=== PATIENT | male | born 1980 | race Caucasian/White ===

== ENCOUNTER 2016-11-05 14:14 | Inpatient (IN) | payer OTHER ==
[~2016-11-05] VITALS: Ht 180.3 cm; Wt 175.1 kg
[2016-11-05 14:59] LABS: BASO # 0.2 x10^3/uL (0.0-0.2); BASO % 1 % (0-3); EOS % 2 % (0-3); HEMATOCRIT 43.9 % (39.0-53.0); HEMOGLOBIN 14.7 g/dL (13.0-17.5); LYMPH % 27 % (24-48); MEAN CORPUSCULAR HEMOGLOBIN 31 pg (25-35); MEAN CORPUSCULAR HGB CONC 33 g/dL (31-37); MEAN CORPUSCULAR VOLUME 92 fL (79-100); MONO % 8 % (0-9); NEUT % 62 % (31-73); PLATELET COUNT 277 x10^3/uL (140-400); RED BLOOD COUNT 4.76 x10^6/uL (4.30-5.70); RED CELL DISTRIBUTION WIDTH 13.8 % (11.5-14.5); WHITE BLOOD COUNT 14.9 x10^3/uL (4.0-11.0)
--- NOTE | 2016-11-05 15:08 | RAD ---
Exam: AP portable chest. History: Chest pain. Comparison: None. Findings: The heart and mediastinal structures are within normal limits for size. Lungs are without infiltrate. No pneumothorax or pleural effusion is appreciated. Impression: 1. No acute cardiopulmonary process.
--- NOTE | 2016-11-05 15:10 | EKG ---
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
[2016-11-05 15:20] LABS: CALCIUM 9.2 mg/dL (8.5-10.1); POTASSIUM 4.4 mmol/L (3.5-5.1)
[2016-11-05 15:30] LABS: ALBUMIN 3.4 g/dL (3.4-5.0); DIRECT BILIRUBIN 0.1 mg/dL (0.0-0.2); MAGNESIUM 2.2 mg/dL (1.8-2.4); TOTAL BILIRUBIN 0.8 mg/dL (0.2-1.0); TOTAL PROTEIN 7.5 g/dL (6.4-8.2)
[2016-11-05 15:33] LABS: CKMB INDEX 0.8 % (0-4); CKMB MASS 0.9 ng/mL (0.0-3.6)
[2016-11-05] MEDS ORDERED: ASPIRIN CHEWABLE 81 MG TABLET. PO ONE (15:45)
[2016-11-05] MEDS ORDERED: IV NORMAL SALINE 1000ML BAG 1,000 ML IV SCH (15:45)
--- NOTE | 2016-11-05 16:37 | PHYS DOC ---
Past Medical History Past Medical History: Migraines Additional Past Medical Histor: sleep disorder, seasonal allergies Past Surgical History: Appendectomy Additional Past Surgical Histo: right shoulder surgery Additional Information: 08/02 ppd Alcohol Use: None Drug Use: None Adult General Chief Complaint Chief Complaint: CHEST PAIN HPI HPI Patient is a 36 year old male who presents with complaint of chest pain. Patient states his symptoms started approximately 1 hour prior to arrival. 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 Patient describes tight chest pain in the middle and left side of the chest with associated shortness of breath that he rated as 9 out of 10. Patient states that he tried to ambulate and felt like he was going to pass out from the pain. EMS was called at the patient's work place and the patient was brought to the emergency department for further evaluation. Patient states that currently his pain as 5 out of 10. Patient denies history of similar symptoms. Patient has history of morbid obesity and history of migraines. Patient also admits to 13 year smoking history. Patient states that there is positive family history of myocardial infarction in both grandparents. Patient has not taken any medications to help with symptoms. Patient denies any significant exacerbating factors. Review of Systems Review of Systems Constitutional: Denies fever or chills [] Eyes: Denies change in visual acuity, redness, or eye pain [] HENT: Denies nasal congestion or sore throat [] Respiratory: Shortness of breath [] Cardiovascular: Chest pain [] GI: Denies abdominal pain, nausea, vomiting, bloody stools or diarrhea [] : Denies dysuria or hematuria [] Musculoskeletal: Denies back pain or joint pain [] Integument: Denies rash or skin lesions [] Neurologic: Denies headache, focal weakness or sensory changes [] Current Medications Current Medications Current Medications Medications (Trade) Dose Ordered Sig/Chente Start Time Stop Time Status Last Admin Dose Admin Aspirin 324 mg 324 mg 1X ONCE 11/05/16 15:45 11/05/16 15:46 DC 11/05/16 15:26 324 MG Sodium Chloride (Iv Sodium Chloride 0.9% 1000ml Bag) 1,000 ml @ 1,000 mls/hr Q1H 11/05/16 15:45 11/05/16 16:44 11/05/16 15:27 1,000 MLS/HR Allergies Allergies Allergies Coded Allergies Type Severity Reaction Last Updated Verified No Known Drug Allergies 11/05/16 No Physical Exam Physical Exam Constitutional: Alert, morbidly obese, afebrile, appears in moderate discomfort. [] HENT: Normocephalic, atraumatic, bilateral external ears normal, oropharynx moist, no oral exudates, nose normal. [] Eyes: PERRLA, EOMI, conjunctiva normal, no discharge. [] Neck: Normal range of motion, no tenderness, supple, no stridor. [] Cardiovascular:Heart rate regular rhythm, no murmur [] Lungs & Thorax: Bilateral breath sounds clear to auscultation [] Abdomen: Bowel sounds normal, soft, no tenderness, no masses, no pulsatile masses. [] Skin: Warm, dry, no erythema, no rash. [] Back: No tenderness, no CVA tenderness. [] Extremities: No tenderness, no cyanosis, no clubbing, ROM intact, no edema. [] Neurologic: Alert and oriented X 3, normal motor function, normal sensory function, no focal deficits noted. [] Current Patient Data Vital Signs Vital Signs Date Time Temp Pulse Resp B/P Pulse Ox O2 Delivery O2 Flow Rate FiO2 11/05/16 15:19 76 18 119/68 99 11/05/16 14:21 98.0 Room Air 98.0 Lab Values Laboratory Tests Test 11/05/16 14:50 White Blood Count 14.9x10^3/uL (4.0-11.0) H Red Blood Count 4.76x10^6/uL (4.30-5.70) Hemoglobin 14.7g/dL (13.0-17.5) Hematocrit 43.9% (39.0-53.0) Mean Corpuscular Volume 92fL (79-100) Mean Corpuscular Hemoglobin 31pg (25-35) Mean Corpuscular Hemoglobin Concent 33g/dL (31-37) Red Cell Distribution Width 13.8% (11.5-14.5) Platelet Count 277x10^3/uL (140-400) Neutrophils (%) (Auto) 62% (31-73) Lymphocytes (%) (Auto) 27% (24-48) Monocytes (%) (Auto) 8% (0-9) Eosinophils (%) (Auto) 2% (0-3) Basophils (%) (Auto) 1% (0-3) Neutrophils # (Auto) 9.3x10^3uL (1.8-7.7) H Lymphocytes # (Auto) 4.0x10^3/uL (1.0-4.8) Monocytes # (Auto) 1.1x10^3/uL (0.0-1.1) Eosinophils # (Auto) 0.3x10^3/uL (0.0-0.7) Basophils # (Auto) 0.2x10^3/uL (0.0-0.2) Sodium Level 140mmol/L (136-145) Potassium Level 4.4mmol/L (3.5-5.1) Chloride Level 103mmol/L (98-107) Carbon Dioxide Level 32mmol/L (21-32) Anion Gap 5 (6-14) L Blood Urea Nitrogen 13mg/dL (8-26) Creatinine 1.0mg/dL (0.7-1.3) Estimated GFR (Cockcroft-Gault) 85.0 Glucose Level 106mg/dL (70-99) H Calcium Level 9.2mg/dL (8.5-10.1) Magnesium Level 2.2mg/dL (1.8-2.4) Total Bilirubin 0.8mg/dL (0.2-1.0) Direct Bilirubin 0.1mg/dL (0.0-0.2) Aspartate Amino Transferase (AST) 21U/L (15-37) Alanine Aminotransferase (ALT) 29U/L (16-63) Alkaline Phosphatase 103U/L (46-116) Creatine Kinase 119U/L (39-308) Creatine Kinase MB (Mass) 0.9ng/mL (0.0-3.6) Creatine Kinase MB Relative Index 0.8% (0-4) Troponin I Quantitative < 0.017ng/mL (0.000-0.055) JF-Lzc-N-Type Natriuretic Peptide 37pg/mL (0-124) Total Protein 7.5g/dL (6.4-8.2) Albumin 3.4g/dL (3.4-5.0) Laboratory Tests 11/05/16 14:50 Laboratory Tests 11/05/16 14:50 EKG EKG Interpreted by me: Heart rate 79, sinus rhythm, normal intervals, normal axis, no acute ST/T-wave abnormalities present [] Radiology/Procedures Radiology/Procedures [facility] [address] [place] [address] IMAGING REPORT Signed PATIENT: BELEM KEANE ACCOUNT: [id number] : 1980 LOCATION: ER AGE: 36 SEX: M EXAM STATUS: PRE ER ORD. PHYSICIAN: SHIREEN RED MD REASON: chest pain PROCEDURE: PORTABLE CHEST 1V Exam: AP portable chest. History: Chest pain. Comparison: None. Findings: The heart and mediastinal structures are within normal limits for size. Lungs are without infiltrate. No pneumothorax or pleural effusion is appreciated. Impression: 1. No acute cardiopulmonary process. DICTATED and SIGNED BY: MARCIE PINK MD DATE: 11/05/16 1505 CC: SHIREEN RED MD ~ [] Course & Med Decision Making Course & Med Decision Making Pertinent Labs and Imaging studies reviewed. (See chart for details) Patient given aspirin in the emergency department. Patient's initial cardiac enzymes were negative. Patient continues to have pain which she describes as 3 out of 10. Patient does have risk factors for possible myocardial infarction. Due to persistent pain, the patient will be admitted for rule out of myocardial infarction. I spoke with Dr. Salas who accepted care patient in hospital. A consult was placed to Dr. Costello of cardiology to follow patient in hospital. Dragon Disclaimer Dragon Disclaimer This electronic medical record was generated, in whole or in part, using a voice recognition dictation system. Departure Departure Impression: Primary Impression: Chest pain Additional Impressions: Morbid obesity Tobacco use Family history of myocardial infarction Disposition: ADMITTED INPATIENT Admitting Physician: Luzma Salas Condition: STABLE Referrals: NO PCP (PCP) Problem Qualifiers Primary Impression: Chest pain Chest pain type: unspecified Qualified Code: R07.9 - Chest pain, unspecified Additional Impressions: Morbid obesity Obesity type: unspecified obesity type Qualified Code: E66.01 - Morbid ( severe) obesity due to excess calories SHIREEN RED MD Nov 05, 2016 16:36
[2016-11-05] MEDS ORDERED: ACETAMINOPHEN 325 MG TABLET. PO PRN (16:45)
[2016-11-05] MEDS ORDERED: ONDANSETRON PF 4 MG/2 ML VIAL. IV PRN (16:45)
[2016-11-05] MEDS ORDERED: FENTANYL PF 100 MCG/2 ML VIAL. IV PRN (16:45)
[2016-11-05 16:47] LABS: BILIRUBIN,URINE NEGATIVE (NEG); GLUCOSE,URINE NEGATIVE (NEG); NITRITE,URINE NEGATIVE (NEG); PROTEIN,URINE NEGATIVE (NEG-TRACE); UROBILINOGEN,URINE 0.2 mg/dL (0.2 mg/dL)
[2016-11-05 16:54] LABS: BARBITURATES NEG (NEG); BENZODIAZEPINES NEG (NEG); CANNABINOIDS NEG (NEG); COCAINE NEG (NEG); METHADONE NEG (NEG); OPIATES NEG (NEG); PHENCYCLIDINE NEG (NEG)
[2016-11-05 16:57] LABS: BACTERIA,URINE FEW /HPF (0-FEW); RBC,URINE 0 /HPF (0-2); SQUAMOUS EPITHELIAL CELL,UR FEW /LPF; WBC,URINE 0 /HPF (0-4)
[2016-11-05 16:57] LABS: ETHANOL, URINE NEG (NEG)
[2016-11-05] MEDS ORDERED: FAMOTIDINE 20 MG TABLET. PO ONE (17:15)
[2016-11-05] MEDS ORDERED: LIDO:MAALOX:DONNATAL 1:1:1 15 ML SINGLE DOSE SWSW ONE (17:15)
--- NOTE | 2016-11-05 17:17 | PDOC1 ---
History and Physical Date of Admission Date of Admission DATE: 11/05/16 TIME: 17:10 Identification/Chief Complaint Chief Complaint chest pain Source Source: Chart review, Patient History of Present Illness History of Present Illness Mr. Gomez, is a 36 year old male admit from ER with acute chest pain. 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 1 hour of acute 8 ,. chest pain in the middle and left side of the chest, that is now improving. Pain was associated w/ shortness of breath. . Pain was severe, he had trouble ambulating Came by EMS from work. no prior symptoms or meds or med problems, + tobacco, + FH grandparents his mothers side Past Medical History Cardiovascular: No pertinent hx Pulmonary: No pertinent hx GI: No pertinent hx Musculoskeletal: Osteoarthritis (right shoulder injury) Past Surgical History Past Surgical History: No pertinent history (r shoulder) Family History Family History: No Significant Social History Smoke: 1 pack per day ALCOHOL: none Drugs: None Current Problem List Problem List Problems Medical Problems: (1) Chest pain Status: Acute (2) Morbid obesity Status: Acute (3) Tobacco use Status: Acute Problems: Current Medications Current Medications Current Medications Aspirin 324 mg 324 mg 1X ONCE PO Last administered on 11/05/16t 15:26; Start at 15:45; Stop 11/05/16 at 15:46; Status DC Sodium Chloride (Iv Sodium Chloride 0.9% 1000ml Bag) 1,000 ml @ 1,000 mls/hr Q1H IV Last administered on 11/05/16t 15:27; Start 11/05/16 at 15:45; Stop at 16:44; Status DC Ondansetron HCl (Zofran) 4 mg PRN Q8HRS PRN IV NAUSEA/VOMITING; Start 11/05/16 at 16:45; Stop 11/06/16 at 16:44 Fentanyl Citrate 50 mcg 50 mcg PRN Q2HR PRN IV PAIN; Start 11/05/16 at 16:45; Stop 11/06/16 at 16:44 Sodium Chloride (Iv Sodium Chloride 0.9% 1000ml Bag) 1,000 ml @ 100 mls/hr Q10H IV ; Start 11/05/16 at 17:00; Stop 11/06/16 at 16:59 Acetaminophen (Tylenol) 650 mg PRN Q4HRS PRN PO FEVER; Start 11/05/16 at 16:45; Stop 11/06/16 at 16:44 Multi-Ingredient Mouthwash/Gargle (Gi Cocktail Single Dose) 15 ml 1X ONCE SWSW ; Start 11/05/16 at 17:15; Stop 11/05/16 at 17:16 Famotidine (Pepcid) 20 mg 1X ONCE PO ; Start 11/05/16 at 17:15; Stop 11/05/16 at 17:16 Allergies Allergies: Coded Allergies: No Known Drug Allergies (Unverified , 11/05/16) ROS General: No: Appetite, Chills, Fatigue, Malaise, Night Sweats, Other PSYCHOLOGICAL ROS: No: Anxiety, Behavioral Disorder, Concentration difficultie , Decreased libido, Depression, Disorientation, Hallucinations, Hostility, Irritablity, Memory difficulties, Mood Swings, Obsessive thoughts, Other, Physical abuse, Sexual abuse, Sleep disturbances, Suicidal ideation Eyes: No Blurry vision, No Decreased vision, No Double vision, No Dry eyes, No Excessive tearing, No Eye Pain, No Itchy Eyes, No Loss of vision, No Other, No Photophobia, No Scotomata, No Uses contacts, No Uses glasses Respiratory: YES: SOB with excertion, Shortness of breath, No: Cough, Hemoptysis, Orthopnea, Other, Sputum Changes, Stridor, Tachypnea, Wheezing Cardiovascular: yes Chest Pain, yes Lt Headedness (maybe), No Edema, No Orthopnea, No Other, No Palpitations, No Paroxysmal Noc. Dyspnea Gastrointestinal: No Abdominal Pain, No Constipation, No Diarrhea, No Hematochezia, No Melena, No Nausea, No Other, No Vomiting Genitourinary: No , No , No , No , No , No , No , No Discharge, No Dysuria, No Flank Pain, No Frequency, No Hematuria, No Incontinence, No Other, No Pain, No Retention, No Urgency Musculoskeletal: Yes Joint Pain, Yes Joint Stiffness (right shoulder), No Gait Disturbance, No Joint Swelling, No Muscle Pain, No Muscular Weakness , No Other, No Pain In:, No Swelling In: Neurological: No Behavorial Changes, No Bowel/Bladder ControlChng, No Confusion , No Dizziness, No Gait Disturbance, No Headaches, No Impaired Coord/balance, No Memory Loss, No Numbness/Tingling, No Other, No Seizures, No Speech Problems , No Tremors, No Visual Changes, No Weakness Skin: Yes Dry Skin, No Acne, No Eczema, No Hair Changes, No Lumps, No Mole Changes, No Mottling, No Nail Changes, No Other, No Pruritus, No Rash, No Skin Lesion Changes Physical Exam General: Alert, Oriented X3, Cooperative, No acute distress HEENT: Atraumatic, PERRLA, EOMI Lungs: Clear to auscultation Heart: S1S2, no murmurs (distant) Abdomen: Normal bowel sounds, Soft (very obese, no titi to palp), No tenderness, Other Extremities: No clubbing, No cyanosis, No edema, Normal pulses Skin: No rashes, No breakdown, No significant lesion Neuro: Sensation intact Psych/Mental Status: Mental status NL, Mood NL Vitals Vitals Vital Signs Date Time Temp Pulse Resp B/P Pulse Ox O2 Delivery O2 Flow Rate FiO2 11/05/16 15:19 76 18 119/68 99 11/05/16 14:21 98.0 Room Air 98.0 Labs Labs Laboratory Tests Test 11/05/16 14:46 11/05/16 14:50 11/05/16 16:14 Urine Opiates Screen Neg (NEG) Urine Methadone Screen Neg (NEG) Urine Barbiturates Neg (NEG) Urine Phencyclidine Screen Neg (NEG) Urine Amphetamine/Methamphetamine Neg (NEG) Urine Benzodiazepines Screen Neg (NEG) Urine Cocaine Screen Neg (NEG) Urine Cannabinoids Screen Neg (NEG) Urine Ethyl Alcohol Neg (NEG) White Blood Count 14.9x10^3/uL (4.0-11.0) Red Blood Count 4.76x10^6/uL (4.30-5.70) Hemoglobin 14.7g/dL (13.0-17.5) Hematocrit 43.9% (39.0-53.0) Mean Corpuscular Volume 92fL (79-100) Mean Corpuscular Hemoglobin 31pg (25-35) Mean Corpuscular Hemoglobin Concent 33g/dL (31-37) Red Cell Distribution Width 13.8% (11.5-14.5) Platelet Count 277x10^3/uL (140-400) Neutrophils (%) (Auto) 62% (31-73) Lymphocytes (%) (Auto) 27% (24-48) Monocytes (%) (Auto) 8% (0-9) Eosinophils (%) (Auto) 2% (0-3) Basophils (%) (Auto) 1% (0-3) Neutrophils # (Auto) 9.3x10^3uL (1.8-7.7) Lymphocytes # (Auto) 4.0x10^3/uL (1.0-4.8) Monocytes # (Auto) 1.1x10^3/uL (0.0-1.1) Eosinophils # (Auto) 0.3x10^3/uL (0.0-0.7) Basophils # (Auto) 0.2x10^3/uL (0.0-0.2) Sodium Level 140mmol/L (136-145) Potassium Level 4.4mmol/L (3.5-5.1) Chloride Level 103mmol/L (98-107) Carbon Dioxide Level 32mmol/L (21-32) Anion Gap 5 (6-14) Blood Urea Nitrogen 13mg/dL (8-26) Creatinine 1.0mg/dL (0.7-1.3) Estimated GFR (Cockcroft-Gault) 85.0 Glucose Level 106mg/dL (70-99) Calcium Level 9.2mg/dL (8.5-10.1) Magnesium Level 2.2mg/dL (1.8-2.4) Total Bilirubin 0.8mg/dL (0.2-1.0) Direct Bilirubin 0.1mg/dL (0.0-0.2) Aspartate Amino Transf (AST/SGOT) 21U/L (15-37) Alanine Aminotransferase (ALT/SGPT) 29U/L (16-63) Alkaline Phosphatase 103U/L (46-116) Creatine Kinase 119U/L (39-308) Creatine Kinase MB (Mass) 0.9ng/mL (0.0-3.6) Creatine Kinase MB Relative Index 0.8% (0-4) Troponin I Quantitative < 0.017ng/mL (0.000-0.055) LR-Apc-J-Type Natriuretic Peptide 37pg/mL (0-124) Total Protein 7.5g/dL (6.4-8.2) Albumin 3.4g/dL (3.4-5.0) Urine Collection Type Unknown Urine Color Yellow Urine Clarity Clear Urine pH 7.0 Urine Specific [place] 1.015 Urine Protein Negativemg/dL (NEG-TRACE) Urine Glucose (UA) Negativemg/dL (NEG) Urine Ketones (Stick) Negativemg/dL (NEG) Urine Blood Negative (NEG) Urine Nitrite Negative (NEG) Urine Bilirubin Negative (NEG) Urine Urobilinogen Dipstick 0.2mg/dL (0.2 mg/dL) Urine Leukocyte Esterase Negative (NEG) Urine RBC 0/HPF (0-2) Urine WBC 0/HPF (0-4) Urine Squamous Epithelial Cells Few/LPF Urine Bacteria Few/HPF (0-FEW) Laboratory Tests Test 11/05/16 14:46 11/05/16 14:50 11/05/16 16:14 Urine Opiates Screen Neg (NEG) Urine Methadone Screen Neg (NEG) Urine Barbiturates Neg (NEG) Urine Phencyclidine Screen Neg (NEG) Urine Amphetamine/Methamphetamine Neg (NEG) Urine Benzodiazepines Screen Neg (NEG) Urine Cocaine Screen Neg (NEG) Urine Cannabinoids Screen Neg (NEG) Urine Ethyl Alcohol Neg (NEG) White Blood Count 14.9x10^3/uL (4.0-11.0) Red Blood Count 4.76x10^6/uL (4.30-5.70) Hemoglobin 14.7g/dL (13.0-17.5) Hematocrit 43.9% (39.0-53.0) Mean Corpuscular Volume 92fL (79-100) Mean Corpuscular Hemoglobin 31pg (25-35) Mean Corpuscular Hemoglobin Concent 33g/dL (31-37) Red Cell Distribution Width 13.8% (11.5-14.5) Platelet Count 277x10^3/uL (140-400) Neutrophils (%) (Auto) 62% (31-73) Lymphocytes (%) (Auto) 27% (24-48) Monocytes (%) (Auto) 8% (0-9) Eosinophils (%) (Auto) 2% (0-3) Basophils (%) (Auto) 1% (0-3) Neutrophils # (Auto) 9.3x10^3uL (1.8-7.7) Lymphocytes # (Auto) 4.0x10^3/uL (1.0-4.8) Monocytes # (Auto) 1.1x10^3/uL (0.0-1.1) Eosinophils # (Auto) 0.3x10^3/uL (0.0-0.7) Basophils # (Auto) 0.2x10^3/uL (0.0-0.2) Sodium Level 140mmol/L (136-145) Potassium Level 4.4mmol/L (3.5-5.1) Chloride Level 103mmol/L (98-107) Carbon Dioxide Level 32mmol/L (21-32) Anion Gap 5 (6-14) Blood Urea Nitrogen 13mg/dL (8-26) Creatinine 1.0mg/dL (0.7-1.3) Estimated GFR (Cockcroft-Gault) 85.0 Glucose Level 106mg/dL (70-99) Calcium Level 9.2mg/dL (8.5-10.1) Magnesium Level 2.2mg/dL (1.8-2.4) Total Bilirubin 0.8mg/dL (0.2-1.0) Direct Bilirubin 0.1mg/dL (0.0-0.2) Aspartate Amino Transf (AST/SGOT) 21U/L (15-37) Alanine Aminotransferase (ALT/SGPT) 29U/L (16-63) Alkaline Phosphatase 103U/L (46-116) Creatine Kinase 119U/L (39-308) Creatine Kinase MB (Mass) 0.9ng/mL (0.0-3.6) Creatine Kinase MB Relative Index 0.8% (0-4) Troponin I Quantitative < 0.017ng/mL (0.000-0.055) DI-Hfd-L-Type Natriuretic Peptide 37pg/mL (0-124) Total Protein 7.5g/dL (6.4-8.2) Albumin 3.4g/dL (3.4-5.0) Urine Collection Type Unknown Urine Color Yellow Urine Clarity Clear Urine pH 7.0 Urine Specific [place] 1.015 Urine Protein Negativemg/dL (NEG-TRACE) Urine Glucose (UA) Negativemg/dL (NEG) Urine Ketones (Stick) Negativemg/dL (NEG) Urine Blood Negative (NEG) Urine Nitrite Negative (NEG) Urine Bilirubin Negative (NEG) Urine Urobilinogen Dipstick 0.2mg/dL (0.2 mg/dL) Urine Leukocyte Esterase Negative (NEG) Urine RBC 0/HPF (0-2) Urine WBC 0/HPF (0-4) Urine Squamous Epithelial Cells Few/LPF Urine Bacteria Few/HPF (0-FEW) VTE Prophylaxis Ordered VTE Prophylaxis Devices: No VTE Pharmacological Prophylaxi: Yes Assessment/Plan Assessment/Plan angina r/o ACS morbid obesity, BMI > 40 Leukocytosis, NOS, no SIRS tobaccoism, consider cessation QUIQUE SALVADOR MD Nov 05, 2016 17:17
[2016-11-05] MEDS: IV NORMAL SALINE 1000ML BAG 1,000 ML IV SCH (17:58)
[2016-11-05] MEDS ORDERED: ENOXAPARIN 40 MG/0.4 ML SYRINGE. SQ SCH (18:00)
[2016-11-05 19:00] VITALS: BP 125/76
[2016-11-05] MEDS ORDERED: AMIT50TA PO (22:35)
[2016-11-05] MEDS ORDERED: CETI1TAB7 PO (22:35)
[2016-11-05] MEDS ORDERED: PROP120C3 PO (22:35)
[2016-11-05] MEDS ORDERED: MULT-208 PO (22:36)
[2016-11-05 22:41] VITALS: BP 132/75
[2016-11-05] MEDS ORDERED: PROP60CA PO (22:56)
[2016-11-05] MEDS ORDERED: CETI10TA22 PO (22:57)
[2016-11-05] MEDS: MULTIVITAMIN with MINERAL TABLET. PO SCH (23:30)
[2016-11-05] MEDS: CETIRIZINE HCL 10 MG TABLET. PO SCH (23:31)
[2016-11-05] MEDS: AMITRIPTYLINE HCL 50 MG TABLET PO SCH (23:31)
[2016-11-05] MEDS: PROPRANOLOL ER 60 MG CAP.SA.24H. PO SCH (23:38)
[2016-11-06] VITALS (7 sets, daily range): BP systolic 117–135; BP diastolic 68–82
[2016-11-06] MEDS: IV NORMAL SALINE 1000ML BAG 1,000 ML IV SCH ×2 (04:11→12:26)
[2016-11-06 05:29] LABS: BASO # 0.1 x10^3/uL (0.0-0.2); BASO % 1 % (0-3); EOS % 2 % (0-3); HEMATOCRIT 42.6 % (39.0-53.0); LYMPH # 4.1 x10^3/uL (1.0-4.8); LYMPH % 32 % (24-48); MEAN CORPUSCULAR HEMOGLOBIN 31 pg (25-35); MEAN CORPUSCULAR HGB CONC 33 g/dL (31-37); MEAN CORPUSCULAR VOLUME 94 fL (79-100); MONO % 6 % (0-9); NEUT % 59 % (31-73); PLATELET COUNT 251 x10^3/uL (140-400); RED BLOOD COUNT 4.55 x10^6/uL (4.30-5.70); RED CELL DISTRIBUTION WIDTH 14.2 % (11.5-14.5); WHITE BLOOD COUNT 12.6 x10^3/uL (4.0-11.0)
[2016-11-06 06:05] LABS: CALCIUM 9.1 mg/dL (8.5-10.1); CREATININE 0.9 mg/dL (0.7-1.3); POTASSIUM 3.7 mmol/L (3.5-5.1)
[2016-11-06 06:19] LABS: CHOLESTEROL/HDL RATIO 5.3
--- NOTE | 2016-11-06 08:42 | ACF ---
Admit Criteria Forms Admit Criteria Forms Admit Criteria Forms CARDIOLOGY GRG Clinical Indications for Admission to Inpatient Care ( Place 'X' for any and all applicable criteria): Hospital admission is needed for appropriate care of the patient because of ANY ONE of the following (1): [ ] I. Hemodynamic instability as indicated by ALL of the following (1)(2)(3) (4)(5) [ ]a) Vital signs or other findings not as expected for chronic patient condition or baseline [ ]b) Instability indicated by ANY ONE of the following: [ ]i) Hypotension [ ]ii) Symptomatic Tachycardia unresponsive to treatment ( e.g., analgesia, fluids, sedation as indicated) [ ]iii) Inadequate perfusion indicated by ANY ONE of the following: [ ] 1) Lactic acidosis (> 2 mmol/L) [ ] 2) New abnormal capillary refill (> 3 seconds) [ ] 3) Reduced urine output [ ] 4) New altered mental status [ ]iv) Orthostatic vital sign changes unresponsive to treatment (e.g., fluids) [ ]v) IV inotropic or vasopressor medication required to maintain adequate blood pressure or perfusion [ ] II. Severe heart failure as indicated by ANY ONE of the following(17)(18) [ ]a) Respiratory distress [ ]b) Hypotension [ ]c) Anasarca (refractory to outpatient therapy) [ ]d) Cardiac arrhythmias of immediate concern [ ]e) Myocardial ischemia [ ] III. Cardiac arrhythmias or findings of immediate concern indicated by ANY ONE of the following (19)(20): [ ] a) Heart rhythms that are inherently dangerous or unstable indicated by ANY ONE of the following (21)(22)(23): [ ] i) Resuscitated ventricular fibrillation or cardiac arrest [ ] ii) Ventricular escape rhythm [ ] iii) Sustained ventricular tachycardia (30 seconds or more of ventricular rhythm at greater than 100 beats per minute) [ ] iv) Nonsustained ventricular tachycardia and ANY ONE of the following: [ ] 1) Suspected cardiac ischemia as cause or consequence of ventricular tachycardia [ ] 2) In setting of acute myocarditis [ ] b) Unstable cardiac conduction defects indicated by ANY ONE of the following(23)(24)(25) [ ] i) Type II second-degree atrioventricular block [ ]ii) Third-degree atrioventricular block [ ]iii) New-onset left bundle branch block with suspected myocardial ischemia [ ]c) Any heart rhythm and ANY ONE of the following (21)(22)(26)(27) (28) [ ] i) Continuous long-term ECG monitoring needed (e.g., initiation of drug requiring monitoring for more than 24 hours) [ ] ii) Patient has automatic implanted cardioverter defibrillator that is repeatedly firing, malfunctioning, or in need of immediate adjustment of settings beyond the scope of ambulatory or observation care [ ]d) Heart rhythms of concern due to ANY ONE of the following: [ ] i) Hypotension [ ] ii) Respiratory distress [ ] iii) Association with other significant symptoms (e.g., bradycardia with syncope or ongoing dizziness, supraventricular tachycardia with chest pain (14)(15)(17) [ ] IV. Monitoring for cardiac contusion beyond the scope of observation care needed [A](30)(31)(32) [ ] V. Surgical or device complication (e.g., valve replacement complication , pacemaker dysfunction) (35)(41)(44)(45)(46) [ ] . Inpatient palliative care needed. [B](49) Also use Inpatient Palliative Care Criteria [ ] VII. Nonbacterial thrombotic (marantic) endocarditis (36)(43)(47)(48) [X] VIII. Cardiology condition, symptom, or finding for which emergency and observation care has failed or are not considered appropriate. [ ] IX. Acute valvular disease requiring inpatient as indicated by ANY ONE of the following (41) [ ]a) Acute valvular regurgitation (42) [ ]b) Noninfectious valvulitis (43) [ ]c) Obstructive valve thrombosis [ ]d) Paravalvular leak [ ]e) Other significant valvular disorder remaining after emergency or observation level of care (as appropriate) [ ]X. Pericardial disease requiring inpatient treatment as indicated by ANY ONE of the following (33)(34)(35)(36)(37) [ ]a) Suspected tamponade (38)(39)(40) [ ]b) Hemopericardium [ ]c) Other significant pericardial disorder remaining after emergency or observation level of care (as appropriate) [ ] XI. Cardiac ischemia beyond scope of emergency and observation care. [ ] XII. Hypertension requiring inpatient treatment as indicated by ANY ONE of the following (6)(7)(8) [ ]a) SBP greater than 220 mm Hg or DBP greater than 120 mmHg despite treatment [ ]b) SBP greater than 140 mm Hg or DBP greater than 100 mm Hg with evidence of acute end organ damage as indicated by ANY ONE of the following [ ] i) Encephalopathy [ ] ii) Acute renal failure as indicated by new onset of ANY ONE of the following (9)(10)(11)(12)(13) [ ]1) 3-fold rise in serum creatinine from baseline [ ]2) Serum creatinine greater than 4 mg/dL ( 354 micromoles/L) with acute rise greater than 0.5 mg/dL (44.2 micromoles/L) [ ]3) Reduction of more than 75% in estimated glomerular filtration rate from baseline [ ]4) Estimated glomerular filtration rate less than 35 mL/min/1.73m2 (0.59 mL/sec/1.73m2) in child up to 18 years of age [ ]5) Cessation of urine output indicated by ALL of the following [ ]A. Adequate volume status [ ]B. Inadequate urine output as indicated by ANY ONE of the following [ ]a. Urine output less than 0.3 mL/kg/hr for 24 hours [ ]b. Anuria (urine output less than 0.1 mL/kg/hr) for 12 hours [ ] iii) Aortic dissection [ ] iv) Myocardial Ischemia [ ] v) Left ventricular heart failure [ ]vi) Retinal Hemorrhage [ ]vii) Other significant finding [ ]c) Hypertension in child requiring inpatient treatment as indicated by ALL of the following(14)(15)(16) [ ] i) Outpatient treatment not effective, not available, or not appropriate [ ]ii) SBP or DBP greater than 95th percentile for age [ ]iii) Evidence of acute end organ damage as indicated by ANY ONE of the following [ ]1) Altered mental status [ ]2) Acute renal failure as indicated by new onset of ANY ONE of the following(9)(10)(11)(12)(13) [ ]A. 3-fold rise in serum creatinine from baseline [ ]B. Serum creatinine greater than 4 mg/dL (354 micromoles/L) with acute rise greater than 0.5 mg/dL (44.2 micromoles/L) [ ]C. Reduction of more than 75% in estimated glomerular filtration rate from baseline [ ]D. Estimated glomerular filtration rate less than 35 mL/min/1.73m2 (0.59 mL/sec/1.73m2) in child up to 18 years of age [ ]E. Cessation of urine output indicated by ALL of the following [ ]a. Adequate volume status [ ]b. Inadequate urine output as indicated by ANY ONE of the following [ ]i) Urine output less than 0.3 mL/kg/hr for 24 hours [ ]ii) Anuria ( urine output less than 0.1 mL/kg/hr) for 12 hours [ ]3) Severe headache [ ]4) Visual disturbance [ ]5) Retinal hemorrhage [ ]6) Other significant finding [ ]XIII. Complications of transplanted heart indicated by ANY ONE of the following(61): [ ]a) Acute graft rejection requiring inpatient management (eg, intravenous immunosuppression)(62)(63) [ ]b) Acute graft heart failure indicated by ANY ONE of the following(64): [ ]i) Hemodynamic instability [ ]ii) Cardiac arrhythmias of immediate concern [ ]iii) Pulmonary edema that is very severe (eg, mechanical ventilation needed, imminent or likely, need for 100% oxygen to keep oxygen saturation above 90%) [ ]iv) Pulmonary edema that is persistent as indicated by ALL of the following: [ ]1) New need for oxygen therapy to keep oxygen saturation above 90% (or increased FiO2 need from baseline) [ ]2) Has not improved sufficiently with emergency department or observation care IV diuretics or other heart failure treatments[E] [ ]v) Altered mental status that is severe or persistent [ ]vi) Increased creatinine (new on laboratory test) with reduction of more than 50% in estimated glomerular filtration rate from baseline [ ]vii) Progressively (ongoing) rising creatinine (known from past laboratory test) with reduction of more than 25% in estimated glomerular filtration rate from baseline [ ]viii) Acute renal failure [ ]ix) Acute peripheral ischemia (eg, examination shows pulseless, cool, mottled, or cyanotic extremity) [ ]x) Pulmonary artery catheter monitoring needed [ ]xi) Other sign or symptom of heart failure requiring inpatient treatment (ie, too severe or not responsive to outpatient and observation care treatment) [ ]c) Infection requiring inpatient management (eg, Hemodynamic instability, need for intravenous antimicrobial treatment)(66)(67)(68)(69)(70) [ ]d) Cardiac allograft vasculopathy requiring inpatient management ( eg evidence of cardiac ischemia)(71) [ ]e) Other complication of transplanted heart (eg, stroke, severe pulmonary hypertension, severe valvular dysfunction) requiring inpatient management(72) The original [facility] content created by [facility] [employer] has been revised. The portions of the content which have been revised are identified through the use of italic text or in bold, and [facility] [employer] has neither reviewed nor approved the modified material. All other unmodified content is copyright [facility] [employer]. Please see references footnoted in the original [facility] [email or web address] edition 2016 LYNN MEJIA Nov 06, 2016 08:42
[2016-11-06] MEDS: PROPRANOLOL ER 60 MG CAP.SA.24H. PO SCH (09:00)
[2016-11-06] MEDS ORDERED: PROPRANOLOL ER 60 MG CAP.SA.24H. PO SCH ×2 (09:00→21:00)
[2016-11-06] MEDS: ASPIRIN ENTERIC COATED 325 MG TABLET.DR. PO SCH (09:04)
--- NOTE | 2016-11-06 13:22 | PDOC2 ---
HERIBERTO OCASIO [employer] WORKER 11/06/16 1322: CARDIAC CONSULT DATE OF CONSULT Date of Consult DATE: 11/06/16 TIME: 13:20 REASON FOR CONSULT Reason for Consult: chest pain HISTORY OF PRESENT ILLNESS HISTORY OF PRESENT ILLNESS Mr Gomez is a 36 year old male who presents with complaints of chest pain. 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 He reports some associated nausea but denies dyspnea or diaphoresis. He says the pain gradually increased over about 30 min and when he got back to his work he was met by EMS. He reports that his pain seemed to ease a bit with laying to his side in the truck and was also eased a bit by GI cocktail given in the ED. He reports pain otherwise lasted over 2 hours and then seemed to resolve on its own. HE denies any prior symptoms of chest discomfort, dyspnea or palpitations. He denies congestive symptoms, lightheadedness or syncope. He says he had been having issues with allergies and post nasal drip for a couple days prior. He denies cough, fever or chills. PAST MEDICAL HISTORY Past Medical History BRENDA on cpap PAST SURGICAL HISTORY Past Surgical History shoulder surgery, tonsillectomy, appendectomy and ear surgery FAMILY HISTORY Family History no premature coronary disease, mother has history of valvular disease secondary to phen phen use. SOCIAL HISTORY Social History smokes 1ppd, no significant ETOH, no illicit drugs CURRENT MEDICATIONS CURRENT MEDICATIONS Current Medications Medications (Trade) Dose Ordered Sig/Chente Route PRN Reason Start Time Stop Time Status Last Admin Dose Admin Aspirin 324 mg 324 mg 1X ONCE PO 11/05/16 15:45 11/05/16 15:46 DC 11/05/16 15:26 Sodium Chloride 1,000 ml @ 1,000 mls/hr Q1H IV 11/05/16 15:45 11/05/16 16:44 DC 11/05/16 15:27 Sodium Chloride (Iv Sodium Chloride 0.9% 1000ml Bag) 1,000 ml @ 100 mls/hr Q10H IV 11/05/16 17:00 11/06/16 16:59 11/06/16 04:11 Multi-Ingredient Mouthwash/Gargle (Gi Cocktail Single Dose) 15 ml 1X ONCE SWSW 11/05/16 17:15 11/05/16 17:16 DC 11/05/16 17:29 Famotidine (Pepcid) 20 mg 1X ONCE PO 11/05/16 17:15 11/05/16 17:16 DC 11/05/16 17:29 Aspirin (Ecotrin) 325 mg DAILYWBKFT PO 11/06/16 08:00 11/06/16 09:04 Enoxaparin Sodium (Lovenox 40mg Syringe) 40 mg Q24H SQ 11/05/16 18:00 11/05/16 17:59 Amitriptyline HCl (Amitriptyline HCl) 50 mg QHS PO 11/05/16 23:15 11/05/16 23:31 Cetirizine HCl (Zyrtec) 10 mg HS PO 11/05/16 23:15 11/05/16 23:31 Propranolol HCl (Inderal La) 120 mg DAILY PO 11/05/16 23:15 11/06/16 11:18 DC 11/05/16 23:38 Multivitamins (Thera M Plus) 1 tab HS PO 11/05/16 23:15 11/05/16 23:30 ALLERGIES ALLERGIES: Coded Allergies: No Known Drug Allergies (Unverified , 11/05/16) ROS Review of System as per HPI PHYSICAL EXAM General: Alert, Oriented X3, Cooperative, No acute distress, Other (morbidly obese) HEENT: Atraumatic, EOMI Lungs: Clear to auscultation Heart: Normal S1, Normal S2, Other (no obvious murmurs, no gallops, clicks or rubs) Abdomen: Normal bowel sounds, Soft Extremities: No cyanosis, No edema, Normal pulses Neuro: Normal speech, Strength at 5/5 X4 ext Psych/Mental Status: Mental status NL, Mood NL VITALS VITALS Vital Signs Date Time Temp Pulse Resp B/P Pulse Ox O2 Delivery O2 Flow Rate FiO2 11/06/16 11:05 97.6 70 20 135/82 93 Room Air 97.6 LABS Lab: Laboratory Tests Test 11/05/16 14:46 11/05/16 14:50 11/05/16 16:14 11/05/16 20:05 Urine Opiates Screen Neg (NEG) Urine Methadone Screen Neg (NEG) Urine Barbiturates Neg (NEG) Urine Phencyclidine Screen Neg (NEG) Urine Amphetamine/Methamphetamine Neg (NEG) Urine Benzodiazepines Screen Neg (NEG) Urine Cocaine Screen Neg (NEG) Urine Cannabinoids Screen Neg (NEG) Urine Ethyl Alcohol Neg (NEG) White Blood Count 14.9x10^3/uL (4.0-11.0) Red Blood Count 4.76x10^6/uL (4.30-5.70) Hemoglobin 14.7g/dL (13.0-17.5) Hematocrit 43.9% (39.0-53.0) Mean Corpuscular Volume 92fL (79-100) Mean Corpuscular Hemoglobin 31pg (25-35) Mean Corpuscular Hemoglobin Concent 33g/dL (31-37) Red Cell Distribution Width 13.8% (11.5-14.5) Platelet Count 277x10^3/uL (140-400) Neutrophils (%) (Auto) 62% (31-73) Lymphocytes (%) (Auto) 27% (24-48) Monocytes (%) (Auto) 8% (0-9) Eosinophils (%) (Auto) 2% (0-3) Basophils (%) (Auto) 1% (0-3) Neutrophils # (Auto) 9.3x10^3uL (1.8-7.7) Lymphocytes # (Auto) 4.0x10^3/uL (1.0-4.8) Monocytes # (Auto) 1.1x10^3/uL (0.0-1.1) Eosinophils # (Auto) 0.3x10^3/uL (0.0-0.7) Basophils # (Auto) 0.2x10^3/uL (0.0-0.2) Sodium Level 140mmol/L (136-145) Potassium Level 4.4mmol/L (3.5-5.1) Chloride Level 103mmol/L (98-107) Carbon Dioxide Level 32mmol/L (21-32) Anion Gap 5 (6-14) Blood Urea Nitrogen 13mg/dL (8-26) Creatinine 1.0mg/dL (0.7-1.3) Estimated GFR (Cockcroft-Gault) 85.0 Glucose Level 106mg/dL (70-99) Calcium Level 9.2mg/dL (8.5-10.1) Magnesium Level 2.2mg/dL (1.8-2.4) Total Bilirubin 0.8mg/dL (0.2-1.0) Direct Bilirubin 0.1mg/dL (0.0-0.2) Aspartate Amino Transf (AST/SGOT) 21U/L (15-37) Alanine Aminotransferase (ALT/SGPT) 29U/L (16-63) Alkaline Phosphatase 103U/L (46-116) Creatine Kinase 119U/L (39-308) Creatine Kinase MB (Mass) 0.9ng/mL (0.0-3.6) Creatine Kinase MB Relative Index 0.8% (0-4) Troponin I Quantitative < 0.017ng/mL (0.000-0.055) < 0.017ng/mL (0.000-0.055) UV-Xke-G-Type Natriuretic Peptide 37pg/mL (0-124) Total Protein 7.5g/dL (6.4-8.2) Albumin 3.4g/dL (3.4-5.0) Urine Collection Type Unknown Urine Color Yellow Urine Clarity Clear Urine pH 7.0 Urine Specific [place] 1.015 Urine Protein Negativemg/dL (NEG-TRACE) Urine Glucose (UA) Negativemg/dL (NEG) Urine Ketones (Stick) Negativemg/dL (NEG) Urine Blood Negative (NEG) Urine Nitrite Negative (NEG) Urine Bilirubin Negative (NEG) Urine Urobilinogen Dipstick 0.2mg/dL (0.2 mg/dL) Urine Leukocyte Esterase Negative (NEG) Urine RBC 0/HPF (0-2) Urine WBC 0/HPF (0-4) Urine Squamous Epithelial Cells Few/LPF Urine Bacteria Few/HPF (0-FEW) Test 11/06/16 04:44 White Blood Count 12.6x10^3/uL (4.0-11.0) Red Blood Count 4.55x10^6/uL (4.30-5.70) Hemoglobin 14.0g/dL (13.0-17.5) Hematocrit 42.6% (39.0-53.0) Mean Corpuscular Volume 94fL (79-100) Mean Corpuscular Hemoglobin 31pg (25-35) Mean Corpuscular Hemoglobin Concent 33g/dL (31-37) Red Cell Distribution Width 14.2% (11.5-14.5) Platelet Count 251x10^3/uL (140-400) Neutrophils (%) (Auto) 59% (31-73) Lymphocytes (%) (Auto) 32% (24-48) Monocytes (%) (Auto) 6% (0-9) Eosinophils (%) (Auto) 2% (0-3) Basophils (%) (Auto) 1% (0-3) Neutrophils # (Auto) 7.4x10^3uL (1.8-7.7) Lymphocytes # (Auto) 4.1x10^3/uL (1.0-4.8) Monocytes # (Auto) 0.8x10^3/uL (0.0-1.1) Eosinophils # (Auto) 0.2x10^3/uL (0.0-0.7) Basophils # (Auto) 0.1x10^3/uL (0.0-0.2) Sodium Level 140mmol/L (136-145) Potassium Level 3.7mmol/L (3.5-5.1) Chloride Level 103mmol/L (98-107) Carbon Dioxide Level 26mmol/L (21-32) Anion Gap 11 (6-14) Blood Urea Nitrogen 12mg/dL (8-26) Creatinine 0.9mg/dL (0.7-1.3) Estimated GFR (Cockcroft-Gault) 96.0 Glucose Level 67mg/dL (70-99) Calcium Level 9.1mg/dL (8.5-10.1) Troponin I Quantitative < 0.017ng/mL (0.000-0.055) Triglycerides Level 181mg/dL (0-150) Cholesterol Level 191mg/dL (0-200) LDL Cholesterol, Calculated 119mg/dL (0-100) VLDL Cholesterol, Calculated 36mg/dL (0-40) HDL Cholesterol 36mg/dL (40-60) Cholesterol/HDL Ratio 5.3 IMAGES IMAGES CXR - Impression: 1. No acute cardiopulmonary process. EKG EKG sinus rhythm, early transition, no acute ischemic changes ASSESSMENT/PLAN ASSESSMENT/PLAN 1. Chest pain, atypical, CT ruled out, no acute EKG changes. Suggest ambulate. Echo as outpatient if discharged home. 2. morbid obesity - weight reduction encouraged 3. BRENDA - cpap as prescribed. Problems: PASNOORI,BILLY R MD 11/06/16 1425: CARDIAC CONSULT ALLERGIES ALLERGIES: Coded Allergies: No Known Drug Allergies (Unverified , 11/05/16) ASSESSMENT/PLAN ASSESSMENT/PLAN Patient seen and examined. Agree with POLE FRAMER's assessment and plan. Chest pain with atypical features and most probably GI in etiology. Myocardial infarction ruled out. Plan for 2-D echocardiogram to rule out any wall motion abnormalities as an outpatient. Thank you for your consultation. Problems: HERIBERTO OCASIO [employer] WORKER Nov 06, 2016 13:22 BILLY MAURICE MD Nov 06, 2016 14:25
--- NOTE | 2016-11-06 14:35 | PDOC ---
PROGRESS NOTES Chief Complaint Chief Complaint chest pain, 2/2 muscular skeletal pain likely morbid obesity, BMI > 40 Leukocytosis, NOS, no SIRS tobaccoism, consider cessation plan: fu with card, would like to do echo CE neg pt refused to leave today, would like to get echo done before leaving hope do echo tmr and dc pt cont home meds History of Present Illness History of Present Illness chest pain gone, mild chest wall tenderness Vitals Vitals Vital Signs Date Time Temp Pulse Resp B/P Pulse Ox O2 Delivery O2 Flow Rate FiO2 11/06/16 11:05 97.6 70 20 135/82 93 Room Air 97.6 Physical Exam General: Alert, Oriented X3, Cooperative, No acute distress, Other (morbidly obese) Heart: Normal S1, Normal S2, Other (no obvious murmurs, no gallops, clicks or rubs) Lungs: Clear Abdomen: Normal bowel sounds, Soft Extremities: No cyanosis, No edema, Normal pulses Skin: No rashes, No breakdown, No significant lesion Labs LABS Laboratory Tests Test 11/05/16 14:46 11/05/16 14:50 11/05/16 16:14 11/05/16 20:05 Urine Opiates Screen Neg (NEG) Urine Methadone Screen Neg (NEG) Urine Barbiturates Neg (NEG) Urine Phencyclidine Screen Neg (NEG) Urine Amphetamine/Methamphetamine Neg (NEG) Urine Benzodiazepines Screen Neg (NEG) Urine Cocaine Screen Neg (NEG) Urine Cannabinoids Screen Neg (NEG) Urine Ethyl Alcohol Neg (NEG) White Blood Count 14.9x10^3/uL (4.0-11.0) Red Blood Count 4.76x10^6/uL (4.30-5.70) Hemoglobin 14.7g/dL (13.0-17.5) Hematocrit 43.9% (39.0-53.0) Mean Corpuscular Volume 92fL (79-100) Mean Corpuscular Hemoglobin 31pg (25-35) Mean Corpuscular Hemoglobin Concent 33g/dL (31-37) Red Cell Distribution Width 13.8% (11.5-14.5) Platelet Count 277x10^3/uL (140-400) Neutrophils (%) (Auto) 62% (31-73) Lymphocytes (%) (Auto) 27% (24-48) Monocytes (%) (Auto) 8% (0-9) Eosinophils (%) (Auto) 2% (0-3) Basophils (%) (Auto) 1% (0-3) Neutrophils # (Auto) 9.3x10^3uL (1.8-7.7) Lymphocytes # (Auto) 4.0x10^3/uL (1.0-4.8) Monocytes # (Auto) 1.1x10^3/uL (0.0-1.1) Eosinophils # (Auto) 0.3x10^3/uL (0.0-0.7) Basophils # (Auto) 0.2x10^3/uL (0.0-0.2) Sodium Level 140mmol/L (136-145) Potassium Level 4.4mmol/L (3.5-5.1) Chloride Level 103mmol/L (98-107) Carbon Dioxide Level 32mmol/L (21-32) Anion Gap 5 (6-14) Blood Urea Nitrogen 13mg/dL (8-26) Creatinine 1.0mg/dL (0.7-1.3) Estimated GFR (Cockcroft-Gault) 85.0 Glucose Level 106mg/dL (70-99) Calcium Level 9.2mg/dL (8.5-10.1) Magnesium Level 2.2mg/dL (1.8-2.4) Total Bilirubin 0.8mg/dL (0.2-1.0) Direct Bilirubin 0.1mg/dL (0.0-0.2) Aspartate Amino Transf (AST/SGOT) 21U/L (15-37) Alanine Aminotransferase (ALT/SGPT) 29U/L (16-63) Alkaline Phosphatase 103U/L (46-116) Creatine Kinase 119U/L (39-308) Creatine Kinase MB (Mass) 0.9ng/mL (0.0-3.6) Creatine Kinase MB Relative Index 0.8% (0-4) Troponin I Quantitative < 0.017ng/mL (0.000-0.055) < 0.017ng/mL (0.000-0.055) JC-Dkb-Z-Type Natriuretic Peptide 37pg/mL (0-124) Total Protein 7.5g/dL (6.4-8.2) Albumin 3.4g/dL (3.4-5.0) Urine Collection Type Unknown Urine Color Yellow Urine Clarity Clear Urine pH 7.0 Urine Specific [place] 1.015 Urine Protein Negativemg/dL (NEG-TRACE) Urine Glucose (UA) Negativemg/dL (NEG) Urine Ketones (Stick) Negativemg/dL (NEG) Urine Blood Negative (NEG) Urine Nitrite Negative (NEG) Urine Bilirubin Negative (NEG) Urine Urobilinogen Dipstick 0.2mg/dL (0.2 mg/dL) Urine Leukocyte Esterase Negative (NEG) Urine RBC 0/HPF (0-2) Urine WBC 0/HPF (0-4) Urine Squamous Epithelial Cells Few/LPF Urine Bacteria Few/HPF (0-FEW) Test 11/06/16 04:44 White Blood Count 12.6x10^3/uL (4.0-11.0) Red Blood Count 4.55x10^6/uL (4.30-5.70) Hemoglobin 14.0g/dL (13.0-17.5) Hematocrit 42.6% (39.0-53.0) Mean Corpuscular Volume 94fL (79-100) Mean Corpuscular Hemoglobin 31pg (25-35) Mean Corpuscular Hemoglobin Concent 33g/dL (31-37) Red Cell Distribution Width 14.2% (11.5-14.5) Platelet Count 251x10^3/uL (140-400) Neutrophils (%) (Auto) 59% (31-73) Lymphocytes (%) (Auto) 32% (24-48) Monocytes (%) (Auto) 6% (0-9) Eosinophils (%) (Auto) 2% (0-3) Basophils (%) (Auto) 1% (0-3) Neutrophils # (Auto) 7.4x10^3uL (1.8-7.7) Lymphocytes # (Auto) 4.1x10^3/uL (1.0-4.8) Monocytes # (Auto) 0.8x10^3/uL (0.0-1.1) Eosinophils # (Auto) 0.2x10^3/uL (0.0-0.7) Basophils # (Auto) 0.1x10^3/uL (0.0-0.2) Sodium Level 140mmol/L (136-145) Potassium Level 3.7mmol/L (3.5-5.1) Chloride Level 103mmol/L (98-107) Carbon Dioxide Level 26mmol/L (21-32) Anion Gap 11 (6-14) Blood Urea Nitrogen 12mg/dL (8-26) Creatinine 0.9mg/dL (0.7-1.3) Estimated GFR (Cockcroft-Gault) 96.0 Glucose Level 67mg/dL (70-99) Calcium Level 9.1mg/dL (8.5-10.1) Troponin I Quantitative < 0.017ng/mL (0.000-0.055) Triglycerides Level 181mg/dL (0-150) Cholesterol Level 191mg/dL (0-200) LDL Cholesterol, Calculated 119mg/dL (0-100) VLDL Cholesterol, Calculated 36mg/dL (0-40) HDL Cholesterol 36mg/dL (40-60) Cholesterol/HDL Ratio 5.3 Review of Systems Review of Systems no fever, chills, sob Assessment and Plan Assessmemt and Plan Problems Medical Problems: (1) Chest pain Status: Acute (2) Morbid obesity Status: Acute (3) Tobacco use Status: Acute Problems: Comment Review of Relevant I have reviewed the following items cody (where applicable) has been applied. Labs Laboratory Tests Test 11/05/16 14:46 11/05/16 14:50 11/05/16 16:14 11/05/16 20:05 Urine Opiates Screen Neg (NEG) Urine Methadone Screen Neg (NEG) Urine Barbiturates Neg (NEG) Urine Phencyclidine Screen Neg (NEG) Urine Amphetamine/Methamphetamine Neg (NEG) Urine Benzodiazepines Screen Neg (NEG) Urine Cocaine Screen Neg (NEG) Urine Cannabinoids Screen Neg (NEG) Urine Ethyl Alcohol Neg (NEG) White Blood Count 14.9x10^3/uL (4.0-11.0) Red Blood Count 4.76x10^6/uL (4.30-5.70) Hemoglobin 14.7g/dL (13.0-17.5) Hematocrit 43.9% (39.0-53.0) Mean Corpuscular Volume 92fL (79-100) Mean Corpuscular Hemoglobin 31pg (25-35) Mean Corpuscular Hemoglobin Concent 33g/dL (31-37) Red Cell Distribution Width 13.8% (11.5-14.5) Platelet Count 277x10^3/uL (140-400) Neutrophils (%) (Auto) 62% (31-73) Lymphocytes (%) (Auto) 27% (24-48) Monocytes (%) (Auto) 8% (0-9) Eosinophils (%) (Auto) 2% (0-3) Basophils (%) (Auto) 1% (0-3) Neutrophils # (Auto) 9.3x10^3uL (1.8-7.7) Lymphocytes # (Auto) 4.0x10^3/uL (1.0-4.8) Monocytes # (Auto) 1.1x10^3/uL (0.0-1.1) Eosinophils # (Auto) 0.3x10^3/uL (0.0-0.7) Basophils # (Auto) 0.2x10^3/uL (0.0-0.2) Sodium Level 140mmol/L (136-145) Potassium Level 4.4mmol/L (3.5-5.1) Chloride Level 103mmol/L (98-107) Carbon Dioxide Level 32mmol/L (21-32) Anion Gap 5 (6-14) Blood Urea Nitrogen 13mg/dL (8-26) Creatinine 1.0mg/dL (0.7-1.3) Estimated GFR (Cockcroft-Gault) 85.0 Glucose Level 106mg/dL (70-99) Calcium Level 9.2mg/dL (8.5-10.1) Magnesium Level 2.2mg/dL (1.8-2.4) Total Bilirubin 0.8mg/dL (0.2-1.0) Direct Bilirubin 0.1mg/dL (0.0-0.2) Aspartate Amino Transf (AST/SGOT) 21U/L (15-37) Alanine Aminotransferase (ALT/SGPT) 29U/L (16-63) Alkaline Phosphatase 103U/L (46-116) Creatine Kinase 119U/L (39-308) Creatine Kinase MB (Mass) 0.9ng/mL (0.0-3.6) Creatine Kinase MB Relative Index 0.8% (0-4) Troponin I Quantitative < 0.017ng/mL (0.000-0.055) < 0.017ng/mL (0.000-0.055) SP-Cst-W-Type Natriuretic Peptide 37pg/mL (0-124) Total Protein 7.5g/dL (6.4-8.2) Albumin 3.4g/dL (3.4-5.0) Urine Collection Type Unknown Urine Color Yellow Urine Clarity Clear Urine pH 7.0 Urine Specific [place] 1.015 Urine Protein Negativemg/dL (NEG-TRACE) Urine Glucose (UA) Negativemg/dL (NEG) Urine Ketones (Stick) Negativemg/dL (NEG) Urine Blood Negative (NEG) Urine Nitrite Negative (NEG) Urine Bilirubin Negative (NEG) Urine Urobilinogen Dipstick 0.2mg/dL (0.2 mg/dL) Urine Leukocyte Esterase Negative (NEG) Urine RBC 0/HPF (0-2) Urine WBC 0/HPF (0-4) Urine Squamous Epithelial Cells Few/LPF Urine Bacteria Few/HPF (0-FEW) Test 11/06/16 04:44 White Blood Count 12.6x10^3/uL (4.0-11.0) Red Blood Count 4.55x10^6/uL (4.30-5.70) Hemoglobin 14.0g/dL (13.0-17.5) Hematocrit 42.6% (39.0-53.0) Mean Corpuscular Volume 94fL (79-100) Mean Corpuscular Hemoglobin 31pg (25-35) Mean Corpuscular Hemoglobin Concent 33g/dL (31-37) Red Cell Distribution Width 14.2% (11.5-14.5) Platelet Count 251x10^3/uL (140-400) Neutrophils (%) (Auto) 59% (31-73) Lymphocytes (%) (Auto) 32% (24-48) Monocytes (%) (Auto) 6% (0-9) Eosinophils (%) (Auto) 2% (0-3) Basophils (%) (Auto) 1% (0-3) Neutrophils # (Auto) 7.4x10^3uL (1.8-7.7) Lymphocytes # (Auto) 4.1x10^3/uL (1.0-4.8) Monocytes # (Auto) 0.8x10^3/uL (0.0-1.1) Eosinophils # (Auto) 0.2x10^3/uL (0.0-0.7) Basophils # (Auto) 0.1x10^3/uL (0.0-0.2) Sodium Level 140mmol/L (136-145) Potassium Level 3.7mmol/L (3.5-5.1) Chloride Level 103mmol/L (98-107) Carbon Dioxide Level 26mmol/L (21-32) Anion Gap 11 (6-14) Blood Urea Nitrogen 12mg/dL (8-26) Creatinine 0.9mg/dL (0.7-1.3) Estimated GFR (Cockcroft-Gault) 96.0 Glucose Level 67mg/dL (70-99) Calcium Level 9.1mg/dL (8.5-10.1) Troponin I Quantitative < 0.017ng/mL (0.000-0.055) Triglycerides Level 181mg/dL (0-150) Cholesterol Level 191mg/dL (0-200) LDL Cholesterol, Calculated 119mg/dL (0-100) VLDL Cholesterol, Calculated 36mg/dL (0-40) HDL Cholesterol 36mg/dL (40-60) Cholesterol/HDL Ratio 5.3 Laboratory Tests Test 11/05/16 14:46 11/05/16 14:50 11/05/16 16:14 11/05/16 20:05 Urine Opiates Screen Neg (NEG) Urine Methadone Screen Neg (NEG) Urine Barbiturates Neg (NEG) Urine Phencyclidine Screen Neg (NEG) Urine Amphetamine/Methamphetamine Neg (NEG) Urine Benzodiazepines Screen Neg (NEG) Urine Cocaine Screen Neg (NEG) Urine Cannabinoids Screen Neg (NEG) Urine Ethyl Alcohol Neg (NEG) White Blood Count 14.9x10^3/uL (4.0-11.0) Red Blood Count 4.76x10^6/uL (4.30-5.70) Hemoglobin 14.7g/dL (13.0-17.5) Hematocrit 43.9% (39.0-53.0) Mean Corpuscular Volume 92fL (79-100) Mean Corpuscular Hemoglobin 31pg (25-35) Mean Corpuscular Hemoglobin Concent 33g/dL (31-37) Red Cell Distribution Width 13.8% (11.5-14.5) Platelet Count 277x10^3/uL (140-400) Neutrophils (%) (Auto) 62% (31-73) Lymphocytes (%) (Auto) 27% (24-48) Monocytes (%) (Auto) 8% (0-9) Eosinophils (%) (Auto) 2% (0-3) Basophils (%) (Auto) 1% (0-3) Neutrophils # (Auto) 9.3x10^3uL (1.8-7.7) Lymphocytes # (Auto) 4.0x10^3/uL (1.0-4.8) Monocytes # (Auto) 1.1x10^3/uL (0.0-1.1) Eosinophils # (Auto) 0.3x10^3/uL (0.0-0.7) Basophils # (Auto) 0.2x10^3/uL (0.0-0.2) Sodium Level 140mmol/L (136-145) Potassium Level 4.4mmol/L (3.5-5.1) Chloride Level 103mmol/L (98-107) Carbon Dioxide Level 32mmol/L (21-32) Anion Gap 5 (6-14) Blood Urea Nitrogen 13mg/dL (8-26) Creatinine 1.0mg/dL (0.7-1.3) Estimated GFR (Cockcroft-Gault) 85.0 Glucose Level 106mg/dL (70-99) Calcium Level 9.2mg/dL (8.5-10.1) Magnesium Level 2.2mg/dL (1.8-2.4) Total Bilirubin 0.8mg/dL (0.2-1.0) Direct Bilirubin 0.1mg/dL (0.0-0.2) Aspartate Amino Transf (AST/SGOT) 21U/L (15-37) Alanine Aminotransferase (ALT/SGPT) 29U/L (16-63) Alkaline Phosphatase 103U/L (46-116) Creatine Kinase 119U/L (39-308) Creatine Kinase MB (Mass) 0.9ng/mL (0.0-3.6) Creatine Kinase MB Relative Index 0.8% (0-4) Troponin I Quantitative < 0.017ng/mL (0.000-0.055) < 0.017ng/mL (0.000-0.055) DO-Kfq-[id number]-Type Natriuretic Peptide 37pg/mL (0-124) Total Protein 7.5g/dL (6.4-8.2) Albumin 3.4g/dL (3.4-5.0) Urine Collection Type Unknown Urine Color Yellow Urine Clarity Clear Urine pH 7.0 Urine Specific [place] 1.015 Urine Protein Negativemg/dL (NEG-TRACE) Urine Glucose (UA) Negativemg/dL (NEG) Urine Ketones (Stick) Negativemg/dL (NEG) Urine Blood Negative (NEG) Urine Nitrite Negative (NEG) Urine Bilirubin Negative (NEG) Urine Urobilinogen Dipstick 0.2mg/dL (0.2 mg/dL) Urine Leukocyte Esterase Negative (NEG) Urine RBC 0/HPF (0-2) Urine WBC 0/HPF (0-4) Urine Squamous Epithelial Cells Few/LPF Urine Bacteria Few/HPF (0-FEW) Test 11/06/16 04:44 White Blood Count 12.6x10^3/uL (4.0-11.0) Red Blood Count 4.55x10^6/uL (4.30-5.70) Hemoglobin 14.0g/dL (13.0-17.5) Hematocrit 42.6% (39.0-53.0) Mean Corpuscular Volume 94fL (79-100) Mean Corpuscular Hemoglobin 31pg (25-35) Mean Corpuscular Hemoglobin Concent 33g/dL (31-37) Red Cell Distribution Width 14.2% (11.5-14.5) Platelet Count 251x10^3/uL (140-400) Neutrophils (%) (Auto) 59% (31-73) Lymphocytes (%) (Auto) 32% (24-48) Monocytes (%) (Auto) 6% (0-9) Eosinophils (%) (Auto) 2% (0-3) Basophils (%) (Auto) 1% (0-3) Neutrophils # (Auto) 7.4x10^3uL (1.8-7.7) Lymphocytes # (Auto) 4.1x10^3/uL (1.0-4.8) Monocytes # (Auto) 0.8x10^3/uL (0.0-1.1) Eosinophils # (Auto) 0.2x10^3/uL (0.0-0.7) Basophils # (Auto) 0.1x10^3/uL (0.0-0.2) Sodium Level 140mmol/L (136-145) Potassium Level 3.7mmol/L (3.5-5.1) Chloride Level 103mmol/L (98-107) Carbon Dioxide Level 26mmol/L (21-32) Anion Gap 11 (6-14) Blood Urea Nitrogen 12mg/dL (8-26) Creatinine 0.9mg/dL (0.7-1.3) Estimated GFR (Cockcroft-Gault) 96.0 Glucose Level 67mg/dL (70-99) Calcium Level 9.1mg/dL (8.5-10.1) Troponin I Quantitative < 0.017ng/mL (0.000-0.055) Triglycerides Level 181mg/dL (0-150) Cholesterol Level 191mg/dL (0-200) LDL Cholesterol, Calculated 119mg/dL (0-100) VLDL Cholesterol, Calculated 36mg/dL (0-40) HDL Cholesterol 36mg/dL (40-60) Cholesterol/HDL Ratio 5.3 Medications Current Medications Aspirin 324 mg 324 mg 1X ONCE PO Last administered on 11/05/16 15:26; Start at 15:45; Stop 11/05/16 at 15:46; Status DC Sodium Chloride (Iv Sodium Chloride 0.9% 1000ml Bag) 1,000 ml @ 1,000 mls/hr Q1H IV Last administered on 11/05/16 15:27; Start 11/05/16 at 15:45; Stop at 16:44; Status DC Ondansetron HCl (Zofran) 4 mg PRN Q8HRS PRN IV NAUSEA/VOMITING; Start 11/05/16 at 16:45; Stop 11/06/16 at 16:44 Fentanyl Citrate 50 mcg 50 mcg PRN Q2HR PRN IV PAIN; Start 11/05/16 at 16:45; Stop 11/06/16 at 16:44 Sodium Chloride (Iv Sodium Chloride 0.9% 1000ml Bag) 1,000 ml @ 100 mls/hr Q10H IV Last administered on 11/06/16 04:11; Start 11/05/16 at 17:00; Stop at 14:16; Status DC Acetaminophen (Tylenol) 650 mg PRN Q4HRS PRN PO FEVER; Start 11/05/16 at 16:45; Stop 11/06/16 at 16:44 Multi-Ingredient Mouthwash/Gargle (Gi Cocktail Single Dose) 15 ml 1X ONCE SWSW Last administered on 11/05/16 17:29; Start 11/05/16 at 17:15; Stop 11/05/16 at 17:16; Status DC Famotidine (Pepcid) 20 mg 1X ONCE PO Last administered on 11/05/16 17:29; Start 11/05/16 at 17:15; Stop 11/05/16 at 17:16; Status DC Aspirin (Ecotrin) 325 mg DAILYWBKFT PO Last administered on 11/06/16 09:04; Start 11/06/16 at 08:00 Enoxaparin Sodium (Lovenox Per Pharmacy Prophylaxis Dosing) 1 each PRN DAILY PRN MC SEE COMMENTS; Start 11/05/16 at 17:15 Enoxaparin Sodium (Lovenox 40mg Syringe) 40 mg Q24H SQ Last administered on 11/05 17:59; Start 11/05/16 at 18:00 Amitriptyline HCl (Amitriptyline HCl) 50 mg QHS PO ; Start 11/06/16 at 21:00; Stop 11/06/16 at 21:00; Status DC Cetirizine HCl (Zyrtec) 10 mg HS PO ; Start 11/06/16 at 21:00; Stop 11/06/16 at 21 :00; Status DC Propranolol HCl (Inderal La) 120 mg DAILY PO ; Start 11/06/16 at 09:00; Stop 11/06 at 09:00; Status DC Multivitamins (Thera M Plus) 1 tab HS PO ; Start 11/06/16 at 21:00; Stop 11/06/16 at 21:00; Status DC Amitriptyline HCl (Amitriptyline HCl) 50 mg QHS PO Last administered on 23:31; Start 11/05/16 at 23:15 Cetirizine HCl (Zyrtec) 10 mg HS PO Last administered on 11/05/16 23:31; Start 11/05/16 at 23:15 Propranolol HCl (Inderal La) 120 mg DAILY PO Last administered on 11/05/16 23: 38; Start 11/05/16 at 23:15; Stop 11/06/16 at 11:18; Status DC Multivitamins (Thera M Plus) 1 tab HS PO Last administered on 11/05/16 23:30; Start 11/05/16 at 23:15 Propranolol HCl (Inderal La) 120 mg HS PO ; Start 11/06/16 at 21:00 Active Scripts Active Reported Zyrtec (Cetirizine Hcl) 10 Mg Tablet 1 Tab PO HS Propranolol Hcl 60 Mg Cap.sa.24h 120 Mg PO DAILY Multi-Day Vitamins (Multivitamin) 1 Each Tablet 1 Tab PO HS Amitriptyline Hcl 50 Mg Tablet 1 Tab PO QHS Vitals/I & O Vital Sign - Last 24 Hours 11/05/16 11/05/16 11/05/16 11/05/16 15:19 16:19 17:32 18:05 Pulse 76 74 71 Resp 18 18 18 B/P 119/68 116/63 119/65 Pulse Ox 99 99 97 O2 Delivery Room Air Room Air Room Air 11/05/16 11/05/16 11/05/16 11/05/16 19:00 20:05 22:41 23:38 Temp 97.8 97.8 97.8 97.8 Pulse 80 78 74 Resp 17 18 B/P 125/76 132/75 137/71 Pulse Ox 94 91 O2 Delivery Room Air Room Air Room Air 11/06/16 11/06/16 11/06/16 11/06/16 03:02 07:00 09:00 11:00 Temp 98.1 96.3 97.6 98.1 96.3 97.6 Pulse 75 72 72 70 Resp 18 20 20 B/P 122/68 119/77 119/77 135/82 Pulse Ox 95 93 93 O2 Delivery Room Air Room Air Room Air 11/06/16 11:05 Temp 97.6 97.6 Pulse 70 Resp 20 B/P 135/82 Pulse Ox 93 O2 Delivery Room Air Intake and Output 11/05/16 11/05/16 11/06/16 15:00 23:00 07:00 Intake Total 1000 ml 557 ml Balance 1000 ml 557 ml MELIA HAMPTON MD Nov 06, 2016 14:35
[2016-11-06] MEDS ORDERED: TRAMADOL 50 MG TABLET. PO PRN (14:45)
[2016-11-06] MEDS ORDERED: ACETAMINOPHEN 325 MG TABLET. PO PRN (14:45)
[2016-11-06] MEDS: MULTIVITAMIN with MINERAL TABLET. PO SCH (20:53)
[2016-11-06] MEDS: AMITRIPTYLINE HCL 50 MG TABLET PO SCH (20:53)
[2016-11-06] MEDS: CETIRIZINE HCL 10 MG TABLET. PO SCH (20:54)
[2016-11-06] MEDS ORDERED: MULTIVITAMIN with MINERAL TABLET. PO SCH (21:00)
[2016-11-06] MEDS ORDERED: CETIRIZINE HCL 10 MG TABLET. PO SCH (21:00)
[2016-11-06] MEDS ORDERED: AMITRIPTYLINE HCL 50 MG TABLET PO SCH (21:00)
[2016-11-07 07:00] VITALS: BP 115/69
[2016-11-07] MEDS: ASPIRIN ENTERIC COATED 325 MG TABLET.DR. PO SCH (08:42)
[2016-11-07 11:00] VITALS: BP 116/88
--- NOTE | 2016-11-07 13:12 | PDOC3 ---
Discharge Summary [facility] Date of Admission: Nov 05, 2016 Discharge Date: Nov 07, 2016 Admitting Diagnosis chest pain, 2/2 muscular skeletal pain likely morbid obesity, BMI > 40 Leukocytosis, NOS, no SIRS tobaccoism, consider cessation Problems: Final Diagnosis CONSULTS card Brief Hospital Course Mr. Gomez is a 36 old M, MORbid obesity, smoking, comes for chest pain with tenderness. 2/2 muscular skeletal pain likely. CE neg. eCHO pending. 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 dc pt if ok with card today after echo. note given to nurse, if cleared eventually. dc time 35min General: Alert, Oriented X3, Cooperative, No acute distress, Other (morbidly obese) Heart: Normal S1, Normal S2, Other (no obvious murmurs, no gallops, clicks or rubs) Lungs: Clear Abdomen: Normal bowel sounds, Soft Extremities: No cyanosis, No edema, Normal pulses Skin: No rashes, No breakdown, No significant lesion Patient History: Family history: Cardiovascular disease (situation) 33 FATHER 32 MOTHER Family history: Diabetes mellitus (situation) 32 MOTHER Family history: Hypertension (situation) 33 FATHER G8 SISTER Sleep apnea G8 BROTHER 33 FATHER Problems: Disposition home CONDITION AT DISCHARGE: Improved Diet regular Scheduled Amitriptyline Hcl (Amitriptyline Hcl) 1 TAB PO QHS (Reported) Cetirizine Hcl (Zyrtec) 1 TAB PO HS (Reported) Multivitamin (Multi-Day Vitamins) 1 TAB PO HS (Reported) Propranolol Hcl (Propranolol Hcl) 120 MG PO DAILY (Reported) Discontinued Medications Cetirizine Hcl/Pseudoephedrine (Zyrtec-D Tablet) 1 TAB PO HS (Reported) Propranolol Hcl (Propranolol Hcl) 120 MG PO HS (Reported) Follow Up fu with pcp in 2 weeks MELIA HAMPTON MD Nov 07, 2016 13:12
[2016-11-07 15:00] VITALS: BP 144/76
--- NOTE | 2016-11-07 17:34 | CARD ---
APPROVED REPORT EXAM: Two-dimensional and M-mode echocardiogram with Doppler and color Doppler. Other Information HR: 64bpm INDICATION Chest Pain RISK FACTORS Obesity 2D DIMENSIONS RVDd3.3 (2.9-3.5cm)Left Atrium(2D)4.0 (1.6-4.0cm) IVSd1.2 (0.7-1.1cm)Aortic Root(2D)3.0 (2.0-3.7cm) LVDd4.2 (3.9-5.9cm)LVOT Diameter2.3 (1.8-2.4cm) PWd1.2 (0.7-1.1cm)LVDs3.0 (2.5-4.0cm) FS (%) 28.4 %SV42.9 ml LVEF(%)55.2 (>50%) Aortic Valve AoV Peak Rasheed.114.4cm/sAoV VTI24.5cm AO Peak GR.5.2mmHgLVOT VTI 17.15cm AO Mean GR.3mmHg Mitral Valve MV E Xwwpbmbg82.7cm/sMV DECEL [id number] MV A Rnmgrunl44.4cm/sE/A Ratio1.4 MV A [id number] TDI Lateral E' P. V11.84cm/sMedial E' P. V12.61cm/s E/Lateral E'6.6E/Medial E'6.2 Pulmonary Vein S1 Offggesv10.8cm/sS2 Dbqyizaa23.72cm/s D2 Qaphcuor69.7cm/sPVa [id number] LEFT VENTRICLE The left ventricle is normal size. There is mild concentric left ventricular hypertrophy. The left ve ntricular systolic function is normal. The Ejection Fraction is 55-60%. There is normal LV segmental wall motion. The left ventricular diastolic function and filling is normal for age. RIGHT VENTRICLE The right ventricle is normal size. There is normal right ventricular wall thickness. The right ventr icular systolic function is normal. ATRIA The left atrium size is normal. The right atrium size is normal. The interatrial septum is intact wit h no evidence for an atrial septal defect or patent foramen ovale as noted on 2-D or Doppler imaging. AORTIC VALVE The aortic valve is not well visualized. Doppler and Color Flow revealed no significant aortic regurg itation. There is no significant aortic valvular stenosis. MITRAL VALVE The mitral valve is normal in structure and function. There is no evidence of mitral valve prolapse. There is no mitral valve stenosis. Doppler and Color Flow revealed no mitral valve regurgitation note d. TRICUSPID VALVE The tricuspid valve is normal in structure and function. Doppler and Color Flow revealed no tricuspid valve regurgitation noted. There is no pulmonary hypertension. PULMONIC VALVE Doppler and Color Flow revealed trace pulmonic valvular regurgitation. There is no pulmonic valvular stenosis. GREAT VESSELS The aortic root is normal in size. The ascending aorta is normal in size. The pulmonary artery is nor mal. The IVC is normal in size and collapses >50% with inspiration. PERICARDIAL EFFUSION There is no evidence of significant pericardial effusion. Critical Notification Critical Value: No <Conclusion> The left ventricular systolic function is normal. The Ejection Fraction is 55-60%. There is normal LV segmental wall motion. There is no evidence of significant pericardial effusion.
== END 2016-11-07 16:44 | disposition home or self-care (01) | DRG 313 ==
LOC: ER 14:14 → 5 SOUTH 16:37
PROVIDERS: ADMIT Internal Medicine; ATTEND Internal Medicine
DX: R07.89 Other chest pain (principal); Z68.41 Body mass index [BMI] 40.0-44.9, adult; D72.829 Elevated white blood cell count, unspecified; E66.01 Morbid (severe) obesity due to excess calories; F17.210 Nicotine dependence, cigarettes, uncomplicated; G47.33 Obstructive sleep apnea (adult) (pediatric); I20.9 Angina pectoris, unspecified; G43.909 Migraine, unspecified, not intractable, without status migrainosus; M19.011 Primary osteoarthritis, right shoulder; Z82.49 Family history of ischemic heart disease and other diseases of the circulatory system; Z90.49 Acquired absence of other specified parts of digestive tract; Z83.3 Family history of diabetes mellitus
CPT/HCPCS: 36415; 71010; 80048; 80061; 80076; 81001; 82553; 83735; 83880; 84484; 85027; 93005; 93306; G0481; J1650; J7030